=== PATIENT | male | born 1985 | race African-American/Black ===

== ENCOUNTER 2018-01-08 14:15 | Emergency (ER) | payer OTHER ==
[2018-01-08] MEDS ORDERED: Ketorolac Tromethamine 30 MG/ML VIAL ONE (14:50)
== END 2018-01-08 15:15 | disposition home or self-care (01) ==
LOC: ERS 14:15
DX: K08.89 Other specified disorders of teeth and supporting structures (principal); I10 Essential (primary) hypertension
CPT/HCPCS: 96372; J1885

== ENCOUNTER 2018-01-10 16:01 | Emergency (ER) | payer MEDICAID, OTHER ==
[2018-01-10] MEDS ORDERED: Dexamethasone 4 MG TAB ONE (16:40)
[2018-01-10] MEDS ORDERED: Bicillin LA 1.2 MILLION UNITS/2 ML SYRINGE ONE (16:40)
== END 2018-01-10 16:57 | disposition home or self-care (01) ==
LOC: ERS 16:01
DX: J02.9 Acute pharyngitis, unspecified (principal); I10 Essential (primary) hypertension
CPT/HCPCS: 87081; 87430; 99283; J0561; J8540

== ENCOUNTER 2018-01-11 12:20 | Inpatient (IN) | payer OTHER ==
[2018-01-11] MEDS ORDERED: ISOVUE-370 76%-LOCM 1 ML ONE (13:33)
[2018-01-11 13:34] LABS: Hemoglobin 13.6 g/dL (14.0-18.0); Mean Corpuscular HGB CONC 33.9 g/dL (32.0-36.0); Mean Corpuscular Hemoglobin 30.9 pg (27.0-31.0); Mean Corpuscular Volume 91.2 fL (78.0-98.0); Mean Platelet Volume 7.5 fL (7.4-10.4); Platelet Count 216 thou/uL (130-400); RBC Distribution Width 11.4 % (11.5-14.5); White Blood Cell (WBC) Count 11.9 thou/uL (4.8-10.8)
[2018-01-11] MEDS ORDERED: Dexamethasone 4 mg/ml Vial ONE (13:37)
[2018-01-11] MEDS ORDERED: Clindamycin/D5W 900 mg/50 ml Premix Bag ONE (13:37)
[2018-01-11 13:45] LABS: ALT (SGPT) 22 U/L (8-55); AST (SGOT) 16 U/L (5-34); Albumin 4.3 g/dL (3.5-5.0); Alkaline Phosphatase 65 U/L (40-150); Anion Gap 14 mmol/L (10-20); BUN (Urea Nitrogen) 13 mg/dL (8.9-20.6); Bilirubin, Total 0.6 mg/dL (0.2-1.2); Calc. Creatinine Clearance 0 mL/min (70-130); Calcium 9.7 mg/dL (7.8-10.44); Carbon Dioxide 27 mmol/L (22-29); Chloride 104 mmol/L (98-107); Estimated GFR-MDRD Greater than 90; Globulin 3.9 g/dL (2.4-3.5); Glucose 88 mg/dL (70-105); Potassium 3.5 mmol/L (3.5-5.1); Protein, Total 8.2 g/dL (6.0-8.3); Sodium 141 mmol/L (136-145)
[2018-01-11 14:02] LABS: Band 4 % (5-11); Lymphocytes 9 % (21-51); MDiff Complete? YES; Monocytes 9 % (0-10); Neutrophil 77 % (42-75); PLT Morphology Comment Appears Adequate; RBC Morphology Normal; Vacuoles SLIGHT
[2018-01-11] MEDS ORDERED: Meropenem 1 GM in Sodium Chloride 0.9% 100 ML IVPB SCH (14:15)
[2018-01-11] MEDS ORDERED: MEROPENEM 1 GM/50 ML 1 GM in Premix Bag 1 BAG IVPB SCH (14:15)
[2018-01-11] MEDS ORDERED: Ondansetron HCl/PF 4 MG/2 ML Vial IVP PRN ×3 (15:05→17:15)
[2018-01-11] MEDS ORDERED: Lidocaine 1% PF 5 ML VIAL ONE (15:11)
[2018-01-11] MEDS ORDERED: Ketorolac Tromethamine 30 MG/ML VIAL ONE (15:11)
[2018-01-11] MEDS ORDERED: Ondansetron HCl/PF 4 MG/2 ML Vial ONE (15:11)
[2018-01-11] MEDS ORDERED: Dexamethasone 20 MG/5 ML VIAL ONE (15:11)
[2018-01-11] MEDS ORDERED: Succinylcholine Chloride 20 MG/ML 10 ml SYRINGE FS ONE (15:11)
[2018-01-11] MEDS ORDERED: PROPOFOL 200 MG/20 ML VIAL ONE (15:11)
[2018-01-11] MEDS ORDERED: Sodium Chloride 0.9% 1,000 ML IV SCH (15:15)
[2018-01-11] MEDS ORDERED: Lidocaine 2% w/Epinephrine 1:200K 20 ML VIAL ONE (15:18)
[2018-01-11] MEDS ORDERED: Chlorhexidine Gluconate 15 ML UDCUP SSP ONE (15:18)
[2018-01-11] MEDS ORDERED: HYDROmorphone 0.5 MG/0.5 ML SYRINGE ONE (15:19)
[2018-01-11] MEDS ORDERED: Midazolam HCl 2 mg/2 ml Vial ONE (15:19)
[2018-01-11] MEDS ORDERED: Fentanyl 100 MCG/2 ML VIAL ONE (15:19)
[2018-01-11] MEDS ORDERED: Acetaminophen 500 MG TAB PO PRN (15:23)
--- NOTE | 2018-01-11 15:52 | CT ---
CT FACE WITH CONTRAST: INDICATIONS: Swelling. Low mandible with difficulty breathing and throat swelling. TECHNIQUE: Multiple axial tomograms obtained through the face, to the mid neck region. FINDINGS: The facial bones show no evidence of nasal or orbital abnormality. The paranasal sinuses are well ae rated with no mucosal disease. The maxilla, zygoma, and mandible appear unremarkable. The mastoid a nd petrous air cells are well aerated. The soft tissues show unremarkable parotid and submandibular glands. Nasopharynx unremarkable. Waldeyer's ring and oropharynx are unremarkable. Review of the base of the tongue reveals abnormal low attenuation involving the base of the tongue on the right, in the region of the geniohyoid musculature, just anterior to the mylohyoid. This has so mewhat of a linear appearance, measuring up to 2.2 cm in AP dimension in the axial plane x approximat greg 0.7 cm in width. There is extension, however, to the lingual side of the mandible, and there is evidence of erosion to the cortex of the mandible, involving the third molar. There is a large ronny involving this molar, and there is evidence of abnormal cystic change involving the roots. This beard ses the possibility of a periapical abscess with lingular extension into the floor of the mouth. Oth er considerations include a dilated Salineno's duct, although the dental etiology is favored. There i s no evidence of a Chi's duct stone, and the right submandibular gland does not appear inflamed. Nonspecific lymph nodes in the cervical chains bilaterally with prominent level II lymph nodes bilate rally, and there are mildly prominent level I lymph nodes, measuring up to 1 cm. IMPRESSION: Abnormal area of low attenuation in the sublingual region on the right with some surrounding enhancem ent. There is cortical erosion involving the lingual side of the mandible at this site, and there is an abnormality involving the third molar. A periapical abscess with lingular extension into the donaldo or of the mouth is suspected. Recommend either a ENT or oral surgical consultation. POS: [facility]
[2018-01-11] MEDS ORDERED: Promethazine HCl 25 MG/ML VIAL IM PRN (16:50)
[2018-01-11] MEDS ORDERED: Promethazine HCl 25 MG/ML VIAL SLOW IVP PRN (16:50)
[2018-01-11] MEDS ORDERED: HYDROmorphone 2 MG/ML VIAL SLOW IVP PRN (16:50)
[2018-01-11] MEDS: D5 0.9% NS w/ 20 mEq KCl 1,000 ML IV SCH (17:05)
[2018-01-11 17:28] VITALS: BMI 40.4
[2018-01-11] MEDS: Ibuprofen 800 MG TAB PO SCH ×2 (18:24→23:49)
--- NOTE | 2018-01-11 19:00 | HP ---
DATE OF SERVICE: 01/11/2018 CHIEF COMPLAINT: "Woke up with swelling." PRIMARY CARE PROVIDER: None. HISTORY OF PRESENT ILLNESS: Mr. Lira is a 32-year-old male, who presents to the emergency department with worsening pain and swelling in his jaw and neck. He was seen in the emergency room twice over the past few days. On the first visit he was treated with toradol, oral penicillin, peridex and ibuprofen. On the second visit yesterday he was diagnosed with acute pharyngitis, and given an injection of Bicillin and 8 mg of oral dexamethasone. He returns today with worsening both of the swelling in his jaw and neck, fevers. He reports he is unable to eat or drink fluids because of this. He denies any precipitants or relieving factors, denies any recent dental work, states the last time was when he was in residential back in 2015. In the emergency room, the patient diagnosed with Jt's angina, given meropenem 1 gram IV, clindamycin 900 mg IV, Decadron 10 mg IV and 1 liter of normal saline and OMFS called for evaluation and surgery and Hospitalist called for admission. PAST MEDICAL HISTORY: Strabismus of his right eye, history of a prior admission in 2011 for facial swelling and dental pain with a diagnosis of oral abscess. PAST SURGICAL HISTORY: He reports some type of abdominal surgery as an . SOCIAL HISTORY: He denies any tobacco, alcohol, or drugs. He lives locally with his girlfriend. He reports his surrogate decision maker is his aunt Libertad Cain. FAMILY HISTORY: Significant for mom who of cirrhosis. REVIEW OF SYSTEMS: He denies any problems with his vision, nausea, vomiting, chest pain or shortness of breath. All remaining review of systems are reviewed and negative. ALLERGIES TO MEDICATIONS: RITALIN. CURRENT MEDICATIONS: As prescribed on 01/08/2018, 1. Pen-Vee K 500 mg 4 times daily. 2. Peridex 4 times daily. 3. Ibuprofen 800 mg every 8 hours as needed. PHYSICAL EXAMINATION: VITAL SIGNS: Blood pressure 143/86, pulse 81, respirations 32, although the patient does not appear tachypneic. Temperature 99.2, saturation 94% on room air. GENERAL: Awake, alert, responsive, in no apparent distress, although he speaking with a muffled voice. HEENT: Right strabismus laterally. Pupils are equal and round. The patient is unable to open his mouth very wide. He has edema in the submandibular area on the right side with tenderness to palpation and palpable fullness. LYMPHATICS: No palpable lymphadenopathy, although unable to completely assess in the right anterior cervical area. No bilateral supraclavicular lymphadenopathy. LUNGS: Clear to auscultation bilateral. No audible wheezing, rhonchi or rales. HEART: Normal S1, S2, regular rate and rhythm, no audible murmurs. ABDOMEN: Soft. Present bowel sounds. Nontender, nondistended. EXTREMITIES: No clubbing, cyanosis, or edema. SKIN: No visible rashes. LABORATORY DATA AND IMAGIN. CBC: 11.9, 13,6, 40.1, 216. 2. Chemistry: 141, 3.5, 104, 27, 13, 0.9, 88. 3. LFTs are normal. 4. The patient had a facial bone CT and the results are not yet available. IMPRESSION: 1. Jt's angina. 2. Strabismus - asymptomatic PLAN: 1. Evaluation by OMFS with intention for the operating room for a definitive treatment and cultures. 2. I discussed with OMFS antibiotics, we will continue the clindamycin at 900 mg every 6 hours. Cultures to be obtained in the OR. 3. Manage pain and continue IV fluids for hydration. 4. Anticipated length of stay is at least 2 midnights for IV antibiotics, determination of antibiotic therapy to transition to, and any further needs. 5. DVT prophylaxis with pneumatic compression devices, anticipate patient will be ambulatory. 6. Gastrointestinal prophylaxis not indicated. 7. Code status is FULL. Surrogate decision maker is the patient's aunt. I reviewed the plan of care with the patient. No questions or further needs at end of evaluation. [facility]
[2018-01-11] MEDS: Clindamycin/D5W 900 MG in Premix Bag 1 BAG IVPB SCH (20:24)
[2018-01-11] MEDS: Chlorhexidine Gluconate 15 ML UDCUP SSP SCH (20:24)
--- NOTE | 2018-01-11 22:30 | CON ---
DATE OF CONSULTATION: 01/11/2018 REASON FOR CONSULTATION: Jaw pain and swelling. HISTORY OF PRESENT ILLNESS: This is a 32-year-old black male with approximately 2-week history of a right lower jaw pain and swelling, has been in the ER multiple times, recently on penicillin for this right lower jaw pain and swelling. For this, I was consulted. The patient does have a little bit o f difficulty swallowing and pain in his right jaw. No difficulty breathing or maintaining his airway or holding secretions. He has no numbness of his lip, chin or tongue. He does complain of pain in the right submandibular and submental region and pain from a right posterior mandibular molar. PAST MEDICAL HISTORY: The patient has a history of psychiatric disorder, unspecified. PAST SURGICAL HISTORY: Bowel resection as a child. SOCIAL HISTORY: Denies alcohol, tobacco and drugs. ALLERGIES: To RITALIN. MEDICATIONS: The patient states he takes no current home meds. PHYSICAL EXAMINATION: VITAL SIGNS: The patient's vital signs are currently stable. He is afebrile, he is satting 96% on r oom air. GENERAL: He is awake, alert, oriented x3, is in no acute distress. NECK: He does have a rather obese neck with some swelling in the right submandibular and submental a minerva as well as some swelling in the floor of the mouth on the right side. HEENT: He has a grossly decayed tooth #32, which is tender to palpation. His oral opening is good. His oropharynx is visualized. His floor of mouth is slightly elevated, but is fairly soft, nonfluct uant as well as submandibular and submental area; however, it is very tender to palpation. A CT scan of the neck with IV contrast shows a possible enhancing abscess lesion in the right subling ual area with attenuation of the right submental area as well. I cannot for certain say this the act ual fluid collection or just inflamed tissue, there is also noted a necrotic tooth #32 with a periapi myrna radiolucency with cortical perforation of that area. ASSESSMENT: This is a 32-year-old male with right submandibular, submental cellulitis, possible absc ess from necrotic tooth #32 with periapical abscess. PLAN: Will be keep the patient on IV antibiotics, clindamycin 900 mg IV q.6 hours is fine for now. The patient has also been given meropenem in the ER. We will take the patient to the OR for drainage of the above noted abscess, right submandibular and sublingual area and surgical removal and debride ment of socket #32. We will follow the patient closely.
--- NOTE | 2018-01-11 22:41 | OP ---
PREOPERATIVE DIAGNOSES: Right submandibular abscess, right sublingual abscess, necrotic tooth #32. PROCEDURE PERFORMED: Surgical removal of tooth #32, incision and drainage of right submandibular and sublingual abscess. SPECIMENS REMOVED: None. ESTIMATED BLOOD LOSS: 15-20 mL. URINE OUTPUT: Not recorded. DISPOSITION: The patient tolerated the procedure well. BRIEF PATIENT HISTORY AND PROCEDURE IN DETAIL: This is a 32-year-old male with a history of right lo wer jaw pain and tooth pain and swelling, taken to the OR, prepped and draped in the sterile fashion. A throat pack was placed, mouth irrigated with Peridex. Hockey stick incision over bone was made o missy a necrotic tooth #32. This tooth crown was fractured off and tissue was grown over the top of th e tooth. A full thickness mucoperiosteal flap to the buccal was made. A small amount of buccal oste ctomy was done with the drill followed by sectioning of the tooth with the drill, elevator removal of the tooth. I curetted the socket, normal saline irrigation of the socket. A lingual degloving full thickness mucoperiosteal flap was laid to the lingual of the mandible, into the sublingual space and down the submandibular space. Mild amount of purulent type exudate was expressed. Area was irrigat ed thoroughly. A quarter-inch Nettie drain was placed. Area left open to drain. ANESTHESIA: General endotracheal anesthesia through oral tube. The patient was extubated stable and transferred to the postop recovery unit.
[2018-01-12] MEDS: Clindamycin/D5W 900 MG in Premix Bag 1 BAG IVPB SCH ×4 (02:00→20:37)
[2018-01-12] MEDS: D5 0.9% NS w/ 20 mEq KCl 1,000 ML IV SCH ×3 (03:07→23:42)
[2018-01-12 05:28] LABS: #Lymphocytes 0.8 thou/uL (1.20-3.40); #Monocytes 0.8 thou/uL (0.11-0.59); #Neutrophils 10.8 thou/uL (1.40-6.50); %Basophils 0.3 % (0.0-1.0); %Eosinophils 0.3 % (0.0-10.0); %Lymphocytes 6.2 % (21.0-51.0); %Monocytes 6.6 % (0.0-10.0); %Neutrophils 86.6 % (42.0-75.0); Hemoglobin 12.3 g/dL (14.0-18.0); Mean Corpuscular HGB CONC 32.8 g/dL (32.0-36.0); Mean Corpuscular Hemoglobin 30.3 pg (27.0-31.0); Mean Corpuscular Volume 92.4 fL (78.0-98.0); Mean Platelet Volume 7.8 fL (7.4-10.4); Platelet Count 184 thou/uL (130-400); RBC Distribution Width 11.4 % (11.5-14.5); Red Blood Cell (RBC) Count 4.06 mill/uL (4.70-6.10); White Blood Cell (WBC) Count 12.4 thou/uL (4.8-10.8)
[2018-01-12 05:44] LABS: Anion Gap 12 mmol/L (10-20); BUN (Urea Nitrogen) 12 mg/dL (8.9-20.6); Calc. Creatinine Clearance 278 mL/min (70-130); Calcium 8.8 mg/dL (7.8-10.44); Carbon Dioxide 24 mmol/L (22-29); Chloride 106 mmol/L (98-107); Estimated GFR-MDRD Greater than 90; Glucose 137 mg/dL (70-105); Sodium 138 mmol/L (136-145)
[2018-01-12] MEDS: Ibuprofen 800 MG TAB PO SCH ×3 (06:11→18:20)
[2018-01-12] MEDS: Chlorhexidine Gluconate 15 ML UDCUP SSP SCH ×3 (08:33→20:38)
[2018-01-12] MEDS: HYDROcodone/Acetaminophen 7.5/325 mg Tablet PO PRN (13:45)
--- NOTE | 2018-01-12 22:24 | PDOC.PN ---
- Subjective Encounter Start Date: 01/12/18 Encounter Start Time: 22:10 Subjective: f/u for R sublingual abscess s/p I&D with extraction of tooth #32 -: Feels sore but overall better. Tx with IV Clindamycin currently. - Objective MAR Reviewed: Yes Vital Signs & Weight: Vital Signs (12 hours) Temp Pulse Resp BP Pulse Ox 01/12/18 19:45 98.3 F 82 16 131/81 94 L 01/12/18 15:10 97.5 F L 80 18 130/80 98 01/12/18 12:00 97.8 F 69 18 130/85 97 Weight Weight 290 lb I&O: 01/11/18 01/12/18 01/13/18 06:59 06:59 06:59 Intake Total 1840 836 Output Total 950 Balance 890 836 Result Diagrams: 01/12/18 05:08 01/12/18 05:08 Additional Labs: Microbiology 01/18/15 08:26 Throat - Pending Group A Streptococcus Screen (AMAN) - Final 01/10/18 16:33 Throat - Pending Group A Streptococcus Culture - Final 01/10/18 16:24 Tonsil - Pending Group A Streptococcus Screen (AMAN) - Final 01/11/18 13:49 Venous blood - Left Hand Blood Culture - Preliminary Specimen has been received and culture in progress. No Growth to date. 01/11/18 13:30 Venous blood - Left Arm Blood Culture - Preliminary Specimen has been received and culture in progress. No Growth to date. Laboratory Tests 01/11/18 01/12/18 13:29 05:08 WBC 11.9 H Neutrophils % 86.6 H Neutrophils % (Manual) 77 H Radiology Reviewed by me: Yes (CT neck - R sublingual abscess and periapical abscess with extension) Phys Exam - Physical Examination Constitutional: NAD Edema and TTP of R submandibular region, anterior R cervical area HEENT: PERRLA, sclera anicteric + cervical adenopathy Neck: no JVD, full ROM Respiratory: no wheezing, no rales, no rhonchi, clear to auscultation bilateral S1, S2 Cardiovascular: RRR, no significant murmur, no rub, gallop Gastrointestinal: soft, non-tender, no distention, positive bowel sounds Musculoskeletal: no edema, pulses present Neurological: non-focal, normal sensation, moves all 4 limbs Psychiatric: normal affect, A&O x 3 Skin: no rash, normal turgor, cap refill <2 seconds Dx/Plan (1) Sublingual abscess Code(s): K12.2 - CELLULITIS AND ABSCESS OF MOUTH Status: Acute Comment: s/p I&D of abscess POD #1, continue Clindamycin 900mg IV q6h, Chlorhexidine SSP, pain control prn (2) Periapical abscess Code(s): K04.7 - PERIAPICAL ABSCESS WITHOUT SINUS Status: Acute Comment: s/ p #32 extraction, see above in #1 (3) Neutrophilic leukocytosis Code(s): D72.9 - DISORDER OF WHITE BLOOD CELLS, UNSPECIFIED Status: Acute Comment: Serial CBC monitoring - Plan plan discussed w/ family, continue antibiotics, out of bed/ambulate, DVT proph w /SCDs Stable overall -: Continue Clindamycin 900mg IV q6h -: Continue Morphine Sulfate 2mg-4mg IV q4h prn pain -: Chlorhexidine SSP -: AM lab: BMP, CBC * .
[2018-01-13] MEDS: HYDROcodone/Acetaminophen 7.5/325 mg Tablet PO PRN ×2 (01:39→12:17)
[2018-01-13] MEDS: Clindamycin/D5W 900 MG in Premix Bag 1 BAG IVPB SCH ×2 (01:39→08:22)
[2018-01-13 06:14] LABS: Band 6 % (5-11); Hemoglobin 12.4 g/dL (14.0-18.0); Lymphocytes 23 % (21-51); MDiff Complete? YES; Mean Corpuscular Hemoglobin 30.5 pg (27.0-31.0); Mean Corpuscular Volume 92.3 fL (78.0-98.0); Mean Platelet Volume 7.6 fL (7.4-10.4); Monocytes 9 % (0-10); Neutrophil 62 % (42-75); PLT Morphology Comment Appears Adequate; Platelet Count 195 thou/uL (130-400); RBC Distribution Width 11.2 % (11.5-14.5); Red Blood Cell (RBC) Count 4.05 mill/uL (4.70-6.10); White Blood Cell (WBC) Count 8.2 thou/uL (4.8-10.8)
[2018-01-13 06:17] LABS: Anion Gap 13 mmol/L (10-20); BUN (Urea Nitrogen) 12 mg/dL (8.9-20.6); Calc. Creatinine Clearance 260 mL/min (70-130); Calcium 8.4 mg/dL (7.8-10.44); Carbon Dioxide 26 mmol/L (22-29); Chloride 103 mmol/L (98-107); Estimated GFR-MDRD Greater than 90; Glucose 89 mg/dL (70-105); Potassium 3.7 mmol/L (3.5-5.1); Sodium 138 mmol/L (136-145)
[2018-01-13] MEDS: Chlorhexidine Gluconate 15 ML UDCUP SSP SCH (08:22)
--- NOTE | 2018-01-13 10:01 | PRG ---
DATE OF SERVICE: 01/12/2018 TIME: 06:30 p.m. SUBJECTIVE: No acute 24-hour events. The patient is voiding, ambulating, and tolerating p.o. His p ain is controlled. No dysphagia. No difficulty breathing. OBJECTIVE: VITAL SIGNS: Stable. He is afebrile, T-max is 98.7. GENERAL: He is awake, alert, oriented x3. He is in no acute distress. HEENT: His oral opening is good. His oropharynx is clear. There is no uvular deviation. The floor of mouth is soft. NECK: Soft. There is decreased swelling of the right submandibular and submental areas. The drain [place] 1/2 inch was removed from the lingual of the mandible today. LABORATORY DATA: White blood cell count today is 12.4. This is being dictated on 01/13/2018 where t he white count is 8.2. ASSESSMENT: The patient is doing well, status post I and D of a dental abscess. PLAN: Discharge the patient home on p.o. clindamycin 300 mg p.o. q.6 hours x5 days, Peridex 15 mL sw griselda and spit t.i.d., and Tylenol #3 for pain.
[2018-01-13 14:52] VITALS: BP 128/86; TEMP 98.8
--- NOTE | 2018-01-14 01:45 | DIS ---
DATE OF ADMISSION: 01/11/2018 DATE OF DISCHARGE: 01/13/2018 DISCHARGE DIAGNOSES: 1. Sublingual abscess status post incision and drainage on 01/11/2018. 2. Periapical abscess of tooth #32, status post extraction. 3. Neutrophilic leukocytosis improved. CONSULTATIONS: Dr. Edward with Oral Maxillofacial Surgery Service. PERTINENT LABORATORY AND X-RAY FINDINGS: Complete metabolic profile within normal limits. CBC showe d a white blood cell count ranged between 8.2 to 12.4, hemoglobin ranged between 12.3 to 13.6. Blood cultures x2 from 01/11/2018 showed no growth at [address] of the facial bone dated 01/11/2018 sh owed cortical erosion of the lingual side of the mandible the sublingual region on the right. Abnorm ality involving the third molar noted with concern for periapical abscess. HOSPITAL COURSE: The patient was initially admitted after presenting with jaw and neck pain in the c ontext of abscess in the sublingual region noted on CT imaging of the face and neck. The patient was initially treated with IV meropenem, clindamycin, and Decadron and 1 liter of normal saline. The kory haji underwent evaluation by the Oral Maxillofacial Surgery Service and taken for incision and drain age of the right submandibular and sublingual abscess as well as extraction of tooth #32. The patien t continued on IV clindamycin throughout the hospital course; however, postoperatively remained clini janina stable. The patient received Peridex swish and spit as well as ibuprofen and morphine sulfate for pain control. The patient overall remained clinically stable throughout the hospital course and I have discussed followup instructions with the patient who verbalized understanding and agreement. The patient overall clinically stable and ready for discharge on 01/13/2018. DISCHARGE MEDICATIONS: 1. Clindamycin 300 mg 1 tab p.o. q.6 hours x5 days. 2. Peridex 15 mL swish and spit t.i.d. 3. Tylenol No. 3 one to two tabs p.o. q.4-6 hours p.r.n. FOLLOWUP: The patient will follow up with Dr. Julian Edward with [facility]. CONDITION ON DISCHARGE: Stable. ACTIVITY: Ad mehnaz. DIET: Regular. CODE STATUS: FULL. DISPOSITION: Home on 01/13/2018.
== END 2018-01-13 15:02 | disposition home or self-care (01) | DRG 138 ==
LOC: ERS 12:20 → SURG B 17:24
PROVIDERS: ADMIT Family Medicine; ATTEND Family Medicine
PROC: 0W950ZZ Drainage of Lower Jaw, Open Approach (ICD-10-PCS; principal; 2018-01-11)
PROC: 0CTX0Z0 Resection of Lower Tooth, Single, Open Approach (ICD-10-PCS; 2018-01-11)
DX: K12.2 Cellulitis and abscess of mouth (principal); K04.7 Periapical abscess without sinus; D72.9 Disorder of white blood cells, unspecified; H50.89 Other specified strabismus
CPT/HCPCS: 36415; 70487; 80048; 80053; 85007; 85025; 85027; 87040; 87081; 87430; 96361; 96365; 96367; 96375; 99283; J0561; J1100; J1170; J1885; J2001; J2185; J2250; J2270; J2405; J2704; J3010; J3490; J7050; J8540

== ENCOUNTER 2018-06-19 18:10 | Emergency (ER) | payer OTHER | END 2018-06-19 18:23 | disposition home or self-care (01) | LOC: ERS 18:10 | DX: K03.81 Cracked tooth (principal); K04.7 Periapical abscess without sinus; I10 Essential (primary) hypertension | CPT/HCPCS: 99282 ==

== ENCOUNTER 2018-07-15 21:28 | Emergency (ER) | payer OTHER | END 2018-07-15 22:09 | disposition home or self-care (01) | LOC: ERS 21:28 | DX: K02.9 Dental caries, unspecified (principal); I10 Essential (primary) hypertension | CPT/HCPCS: 99282 ==

== ENCOUNTER 2019-06-08 19:52 | Emergency (ER) | payer OTHER ==
[2019-06-08] MEDS ORDERED: Ketorolac Tromethamine 30 MG/ML VIAL ONE (20:41)
== END 2019-06-08 20:55 | disposition home or self-care (01) ==
LOC: ERS 19:52
DX: K02.9 Dental caries, unspecified (principal); I10 Essential (primary) hypertension
CPT/HCPCS: 96372; 99283; J1885

== ENCOUNTER 2019-09-14 15:39 | Emergency (ER) | payer OTHER ==
[2019-09-14] MEDS ORDERED: Ketorolac Tromethamine 30 MG/ML VIAL ONE (16:18)
--- NOTE | 2019-09-14 16:53 | RAD ---
THREE VIEWS OF THE LEFT SHOULDER: 09/14/19 COMPARISON: None. HISTORY: Injury, trauma, pain. FINDINGS: There is no widening of the acromioclavicular or the coracoclavicular interspace. No displaced fractu re or evidence of dislocation is appreciate. There is a focal area of linear calcification adjacent to the greater tuberosity on image 1 of 3 russ uring 7 mm, which may be on the basis of calcific tendinosis. IMPRESSION: No displaced fracture or evidence of dislocation. Question calcific tendinosis. POS: [facility]
== END 2019-09-14 17:02 | disposition home or self-care (01) ==
LOC: ERS 15:39
DX: M25.512 Pain in left shoulder (principal); I10 Essential (primary) hypertension; M54.2 Cervicalgia; R10.814 Left lower quadrant abdominal tenderness; R10.812 Left upper quadrant abdominal tenderness; V89.2XXA Person injured in unspecified motor-vehicle accident, traffic, initial encounter
CPT/HCPCS: 96372; J1885

== ENCOUNTER 2019-10-22 20:41 | Emergency (ER) | payer OTHER ==
[2019-10-22] MEDS ORDERED: Ketorolac Tromethamine 30 MG/ML VIAL ONE (21:44)
== END 2019-10-22 22:08 | disposition home or self-care (01) ==
LOC: ERS 20:41
DX: K08.89 Other specified disorders of teeth and supporting structures (principal); I10 Essential (primary) hypertension
CPT/HCPCS: 96372; 99282; J1885

== ENCOUNTER 2020-05-19 16:11 | Emergency (ER) | payer OTHER | END 2020-05-19 16:55 | disposition home or self-care (01) | LOC: ERS 16:11 | DX: S02.2XXA Fracture of nasal bones, initial encounter for closed fracture (principal); S40.022A Contusion of left upper arm, initial encounter; I10 Essential (primary) hypertension; Y04.8XXA Assault by other bodily force, initial encounter | CPT/HCPCS: 99284 ==

== ENCOUNTER 2020-09-03 14:03 | Emergency (ER) | payer OTHER ==
[2020-09-03] MEDS ORDERED: Ketorolac Tromethamine 30 MG/ML VIAL ONE ×2 (16:43→16:45)
[2020-09-03] MEDS ORDERED: Acetaminophen 500 MG TAB ONE (16:45)
--- NOTE | 2020-09-03 16:49 | RAD ---
Portable frontal chest radiograph: 09/03/2020 COMPARISON: 12/24/2014 HISTORY: Fever and chills, cough FINDINGS: There are patchy areas of interstitial and groundglass opacity noted in the left perihilar region and left suprahilar region as well as within the medial right lung base. There is no pneumothorax or pleural fluid and no focal consolidation or alveolar edema. IMPRESSION: Patchy areas of linear interstitial density and groundglass opacity. Findings may signify Covid pneumonia in the proper clinical setting.
[2020-09-03 16:52] LABS: #Monocytes 0.3 thou/uL (0.11-0.59); #Neutrophils 3.5 thou/uL (1.40-6.50); %Basophils 0.4 % (0.0-1.0); %Eosinophils 0.1 % (0.0-10.0); %Lymphocytes 20.5 % (21.0-51.0); %Monocytes 6.9 % (0.0-10.0); %Neutrophils 72.1 % (42.0-75.0); Hemoglobin 13.8 g/dL (14.0-18.0); Mean Corpuscular HGB CONC 33.7 g/dL (32.0-36.0); Mean Corpuscular Hemoglobin 29.8 pg (27.0-31.0); Mean Corpuscular Volume 88.4 fL (78.0-98.0); Mean Platelet Volume 7.6 fL (7.4-10.4); Platelet Count 200 thou/uL (130-400); RBC Distribution Width 11.3 % (11.5-14.5); Red Blood Cell (RBC) Count 4.62 mill/uL (4.70-6.10); White Blood Cell (WBC) Count 4.9 thou/uL (4.8-10.8)
[2020-09-03 17:12] LABS: ALT (SGPT) 22 U/L (8-55); AST (SGOT) 21 U/L (5-34); Albumin 4.3 g/dL (3.5-5.0); Alkaline Phosphatase 62 U/L (40-110); Anion Gap 16 mmol/L (10-20); BUN (Urea Nitrogen) 10 mg/dL (8.9-20.6); Bilirubin, Total 0.5 mg/dL (0.2-1.2); Calc. Creatinine Clearance 0 mL/min (70-130); Calcium 8.9 mg/dL (7.8-10.44); Carbon Dioxide 25 mmol/L (22-29); Chloride 103 mmol/L (98-107); Globulin 3.7 g/dL (2.4-3.5); Glucose 88 mg/dL (70-105); Potassium 4.1 mmol/L (3.5-5.1); Sodium 140 mmol/L (136-145)
[2020-09-03 17:24] LABS: Bilirubin Negative (Negative); Blood, Urine Negative (Negative); Clarity Clear (Clear); Glucose, Urine (Dipstick) Normal (Negative); Ketone, Urine Negative (Negative); Leukocyte Negative Leu/uL (Negative); Nitrite Negative (Negative); Protein, Urine (Dipstick) 10 mg/dL (Neg-Trace); Specific Gravity, Urine 1.029 (1.002-1.036); Urobilinogen Normal mg/dL (Less than 2)
[2020-09-03 19:19] LABS: SARS-CoV-2 NAA Rapid Test DETECTED (NotDetected)
== END 2020-09-03 19:02 | disposition home or self-care (01) ==
LOC: ERS 14:03
DX: U07.1 COVID-19 (principal); E78.5 Hyperlipidemia, unspecified; I10 Essential (primary) hypertension
CPT/HCPCS: 0240U; 71045; 80053; 81003; 85025; 87086; 96374; J1885

== ENCOUNTER 2020-12-09 21:57 | Emergency (ER) | payer OTHER ==
[2020-12-09] MEDS ORDERED: Ibuprofen 200 MG TAB ONE (23:44)
[2020-12-09] MEDS ORDERED: Acetaminophen 500 MG TAB ONE (23:44)
== END 2020-12-09 23:40 | disposition home or self-care (01) ==
LOC: ERS 21:57
DX: K62.89 Other specified diseases of anus and rectum (principal); E78.5 Hyperlipidemia, unspecified; I10 Essential (primary) hypertension
CPT/HCPCS: 99283

== ENCOUNTER 2021-02-10 01:53 | Emergency (ER) | payer OTHER | END 2021-02-10 03:15 | disposition home or self-care (01) | LOC: ERS 01:53 | DX: K62.89 Other specified diseases of anus and rectum (principal); K64.9 Unspecified hemorrhoids; E78.5 Hyperlipidemia, unspecified; I10 Essential (primary) hypertension | CPT/HCPCS: 99281 ==

== ENCOUNTER 2021-02-14 14:54 | Emergency (ER) | payer OTHER ==
[2021-02-14 18:11] LABS: #Lymphocytes 1.6 thou/uL (1.20-3.40); #Monocytes 0.6 thou/uL (0.11-0.59); #Neutrophils 6.3 thou/uL (1.40-6.50); %Basophils 0.3 % (0.0-1.0); %Eosinophils 0.5 % (0.0-10.0); %Lymphocytes 19.1 % (21.0-51.0); %Monocytes 6.8 % (0.0-10.0); %Neutrophils 73.4 % (42.0-75.0); Hemoglobin 13.6 g/dL (14.0-18.0); Mean Corpuscular HGB CONC 33.5 g/dL (32.0-36.0); Mean Corpuscular Hemoglobin 30.4 pg (27.0-31.0); Mean Corpuscular Volume 90.8 fL (78.0-98.0); Mean Platelet Volume 7.5 fL (7.4-10.4); Platelet Count 268 thou/uL (130-400); RBC Distribution Width 11.6 % (11.5-14.5); Red Blood Cell (RBC) Count 4.46 mill/uL (4.70-6.10); White Blood Cell (WBC) Count 8.5 thou/uL (4.8-10.8)
[2021-02-14 18:34] LABS: ALT (SGPT) 27 U/L (8-55); AST (SGOT) 18 U/L (5-34); Albumin 4.3 g/dL (3.5-5.0); Alkaline Phosphatase 73 U/L (40-110); Anion Gap 13 mmol/L (10-20); BUN (Urea Nitrogen) 8 mg/dL (8.9-20.6); Bilirubin, Total 0.5 mg/dL (0.2-1.2); Calc. Creatinine Clearance 0 mL/min (70-130); Calcium 9.5 mg/dL (7.8-10.44); Carbon Dioxide 26 mmol/L (22-29); Chloride 102 mmol/L (98-107); Globulin 3.7 g/dL (2.4-3.5); Glucose 83 mg/dL (70-105); Lipase 12 U/L (8-78); Potassium 4.2 mmol/L (3.5-5.1); Sodium 137 mmol/L (136-145)
[2021-02-14 19:03] LABS: Bilirubin Negative (Negative); Blood, Urine Negative (Negative); Clarity Clear (Clear); Glucose, Urine (Dipstick) Normal (Negative); Ketone, Urine Negative (Negative); Leukocyte Negative Leu/uL (Negative); Nitrite Negative (Negative); Protein, Urine (Dipstick) Negative (Neg-Trace); Urobilinogen Normal mg/dL (Less than 2)
[2021-02-14] MEDS ORDERED: Magnesium Citrate 300 ML BOT ONE (19:11)
[2021-02-14] MEDS ORDERED: Fleet Enema 133 ML BOT FS SCH (19:30)
== END 2021-02-14 22:49 | disposition home or self-care (01) ==
LOC: ERS 14:54
DX: K59.00 Constipation, unspecified (principal); I10 Essential (primary) hypertension; E78.5 Hyperlipidemia, unspecified
CPT/HCPCS: 36415; 74019; 80053; 81003; 83690; 85025

== ENCOUNTER 2021-04-12 13:54 | Emergency (ER) | payer OTHER ==
[2021-04-12 15:01] LABS: #Eosinphils 0.1 thou/uL (0.0-0.7); #Lymphocytes 1.2 thou/uL (1.20-3.40); #Monocytes 0.4 thou/uL (0.11-0.59); #Neutrophils 3.1 thou/uL (1.40-6.50); %Eosinophils 1.1 % (0.0-10.0); %Lymphocytes 24.2 % (21.0-51.0); %Monocytes 7.8 % (0.0-10.0); Hemoglobin 12.8 g/dL (14.0-18.0); Mean Corpuscular HGB CONC 32.8 g/dL (32.0-36.0); Mean Corpuscular Hemoglobin 29.9 pg (27.0-31.0); Mean Corpuscular Volume 91.1 fL (78.0-98.0); Mean Platelet Volume 7.3 fL (7.4-10.4); Platelet Count 244 thou/uL (130-400); RBC Distribution Width 11.9 % (11.5-14.5); Red Blood Cell (RBC) Count 4.28 mill/uL (4.70-6.10); White Blood Cell (WBC) Count 4.8 thou/uL (4.8-10.8)
[2021-04-12 15:22] LABS: ALT (SGPT) 21 U/L (8-55); AST (SGOT) 15 U/L (5-34); Albumin 4.1 g/dL (3.5-5.0); Alkaline Phosphatase 66 U/L (40-110); Anion Gap 13 mmol/L (10-20); BUN (Urea Nitrogen) 9 mg/dL (8.9-20.6); Bilirubin, Total 0.5 mg/dL (0.2-1.2); Calc. Creatinine Clearance 0 mL/min (70-130); Calcium 9.4 mg/dL (7.8-10.44); Carbon Dioxide 25 mmol/L (22-29); Chloride 108 mmol/L (98-107); Globulin 3.2 g/dL (2.4-3.5); Glucose 103 mg/dL (70-105); Potassium 4.2 mmol/L (3.5-5.1); Protein, Total 7.3 g/dL (6.0-8.3); Sodium 142 mmol/L (136-145)
== END 2021-04-12 16:48 | disposition home or self-care (01) ==
LOC: ERS 13:54
DX: K52.9 Noninfective gastroenteritis and colitis, unspecified (principal)
CPT/HCPCS: 36415; 80053; 85025; 94760

== ENCOUNTER 2021-05-05 21:20 | Emergency (ER) | payer OTHER ==
[2021-05-05] MEDS ORDERED: Ketorolac Tromethamine 30 MG/ML VIAL ONE (21:39)
== END 2021-05-05 22:50 | disposition home or self-care (01) ==
LOC: ERS 21:20
DX: M25.561 Pain in right knee (principal); E78.5 Hyperlipidemia, unspecified; I10 Essential (primary) hypertension
CPT/HCPCS: 96372; J1885

== ENCOUNTER 2021-08-25 12:33 | Emergency (ER) | payer OTHER ==
[~2021-08-25 12:33] MED LIST: Iopamidol-370 76% 500 ML 1 ML ONE
== END 2021-08-25 15:17 | disposition home or self-care (01) ==
LOC: ERS 12:33
DX: S30.1XXA Contusion of abdominal wall, initial encounter (principal); M62.838 Other muscle spasm; M54.2 Cervicalgia; M54.50 Low back pain, unspecified; I10 Essential (primary) hypertension; E78.5 Hyperlipidemia, unspecified; V89.2XXA Person injured in unspecified motor-vehicle accident, traffic, initial encounter
CPT/HCPCS: 71045; 72125; 74177; Q9967

== ENCOUNTER 2022-06-16 20:13 | Emergency (ER) | payer OTHER ==
[2022-06-16] MEDS ORDERED: Ibuprofen 200 MG TAB ONE (20:41)
[2022-06-16] MEDS ORDERED: diphenhydrAMINE 25 MG CAP ONE (20:55)
[2022-06-16 21:40] LABS: SARS-CoV-2 NAA Rapid Test Not Detected (NotDetected)
== END 2022-06-16 21:03 | disposition home or self-care (01) ==
LOC: ERS 20:13
DX: H60.92 Unspecified otitis externa, left ear (principal); B34.9 Viral infection, unspecified; Z20.822 Contact with and (suspected) exposure to COVID-19; E78.5 Hyperlipidemia, unspecified; I10 Essential (primary) hypertension
CPT/HCPCS: 99283

== ENCOUNTER 2022-08-04 20:59 | Emergency (ER) | payer OTHER ==
[2022-08-04 21:31] LABS: #Basophils 0.1 thou/uL (0.0-0.2); #Lymphocytes 1.7 thou/uL (1.20-3.40); #Monocytes 0.5 thou/uL (0.11-0.59); #Neutrophils 3.1 thou/uL (1.40-6.50); %Eosinophils 0.8 % (0.0-10.0); %Lymphocytes 31.4 % (21.0-51.0); %Monocytes 8.9 % (0.0-10.0); %Neutrophils 57.9 % (42.0-75.0); Hemoglobin 14.3 g/dL (14.0-18.0); Mean Corpuscular HGB CONC 34.2 g/dL (32.0-36.0); Mean Corpuscular Hemoglobin 30.9 pg (27.0-31.0); Mean Corpuscular Volume 90.2 fl (78.0-98.0); Mean Platelet Volume 7.7 fL (7.4-10.4); Platelet Count 256 10x3/uL (130-400); RBC Distribution Width 11.8 % (11.5-14.5); Red Blood Cell (RBC) Count 4.64 mill/uL (4.70-6.10); White Blood Cell (WBC) Count 5.4 10x3/uL (4.8-10.8)
[2022-08-04 21:51] LABS: ALT (SGPT) 26 U/L (8-55); AST (SGOT) 17 U/L (5-34); Albumin 4.4 g/dL (3.5-5.0); Alkaline Phosphatase 62 U/L (40-110); Anion Gap 15 mmol/L (10-20); BUN (Urea Nitrogen) 10 mg/dL (8.9-20.6); Bilirubin, Total 0.3 mg/dL (0.2-1.2); Calc. Creatinine Clearance 0 mL/min (70-130); Calcium 9.4 mg/dL (7.8-10.44); Carbon Dioxide 23 mmol/L (22-29); Chloride 108 mmol/L (98-107); Estimated GFR 120; Globulin 3.6 g/dL (2.4-3.5); Glucose 79 mg/dL (70-105); Potassium 4.1 mmol/L (3.5-5.1); Sodium 142 mmol/L (136-145)
[2022-08-04] MEDS ORDERED: Acetaminophen 500 MG TAB ONE (22:29)
[2022-08-04] MEDS ORDERED: Ketorolac Tromethamine 30 MG/ML VIAL ONE (22:29)
== END 2022-08-04 23:00 | disposition home or self-care (01) ==
LOC: ERS 20:59
DX: M79.602 Pain in left arm (principal); E78.5 Hyperlipidemia, unspecified; I10 Essential (primary) hypertension
CPT/HCPCS: 36415; 70450; 71045; 80053; 84484; 85025; 93005; 96372; J1885

== ENCOUNTER 2024-05-10 22:48 | Emergency (ER) | payer SELFPAY ==
[2024-05-10 23:36] LABS: #Basophils 0.03 10x3/uL (0.0-0.2); %Basophils 0.8 % (0.0-1.0); %Eosinophils 2.3 % (0.0-10.0); %Lymphocytes 34.4 % (21.0-51.0); %Monocytes 7.6 % (0.0-10.0); %Neutrophils 54.6 % (42.0-75.0); Hematocrit 42.1 % (42.0-52.0); Hemoglobin 13.9 g/dL (14.0-18.0); Mean Corpuscular Hemoglobin 29.6 pg (27.0-31.0); Mean Corpuscular Volume 89.8 fL (78.0-98.0); Mean Platelet Volume 10.1 fL (7.4-10.4); Platelet Count 247 10x3/uL (130-400); RBC Distribution Width 12.4 % (11.5-14.5); Red Blood Cell (RBC) Count 4.69 mill/uL (4.70-6.10)
[2024-05-10 23:48] LABS: ALT (SGPT) 34 U/L (8-55); AST (SGOT) 23 U/L (5-34); Albumin 3.8 g/dL (3.5-5.0); Alkaline Phosphatase 66 U/L (40-110); Anion Gap 13 mmol/L (10-20); BUN (Urea Nitrogen) 9 mg/dL (8.9-20.6); Bilirubin, Total 0.4 mg/dL (0.2-1.2); Calc. Creatinine Clearance 0 mL/min (70-130); Calcium 9.3 mg/dL (7.8-10.44); Carbon Dioxide 25 mmol/L (22-29); Chloride 103 mmol/L (98-107); Estimated GFR 116; Globulin 3.6 g/dL (2.4-3.5); Glucose 98 mg/dL (70-105); Protein, Total 7.4 g/dL (6.0-8.3); Sodium 137 mmol/L (136-145)
[2024-05-10 23:49] LABS: Acetaminophen Less than 10 mcg/mL (Less than 10); Alcohol Less than 10.0 mg/dL (Less than 10); Salicylate Less than 8.0 mg/dL (Less than 8.0)
[2024-05-10 23:52] LABS: Troponin I Less than 0.010 ng/mL (< 0.028)
[2024-05-11 00:15] LABS: Amphetamine Not Detected (NotDetected); Barbiturates Screen Not Detected (NotDetected); Benzodiazepine Screen Not Detected (NotDetected); Cocaine Metabolite Screen Not Detected (NotDetected); Methadone Not Detected (NotDetected); Methamphetamine Not Detected (NotDetected); Opiate Screen Not Detected (NotDetected); Oxycodone Screen Not Detected (NotDetected); Phencyclidine (PCP) Not Detected (NotDetected); THC/Cannabinoid Screen Not Detected (NotDetected); Tricyclic Screen Not Detected (NotDetected)
== END 2024-05-11 02:34 | disposition home or self-care (01) ==
LOC: ERS 22:48
DX: G62.9 Polyneuropathy, unspecified (principal); I10 Essential (primary) hypertension
CPT/HCPCS: 36415; 36416; 70450; 71045; 80053; 80306; 80307; 83605; 83880; 84484; 85025; 87428; 93005; 94760

== ENCOUNTER 2025-02-27 13:23 | Emergency (ER) | payer OTHER ==
[2025-02-27] MEDS ORDERED: Ketorolac Tromethamine 30 MG (1 mL) VIAL ONE (16:18)
[2025-02-27] MEDS ORDERED: Metoclopramide HCl 10 MG (2 mL) VIAL ONE (16:19)
[2025-02-27] MEDS ORDERED: Dexamethasone 10 MG/ML VIAL ONE (16:19)
== END 2025-02-27 17:20 | disposition home or self-care (01) ==
LOC: ERS 13:23
DX: G43.909 Migraine, unspecified, not intractable, without status migrainosus (principal); I10 Essential (primary) hypertension
CPT/HCPCS: 96374; 96375; J1100; J1885; J2765

== ENCOUNTER 2025-07-08 15:31 | Emergency (ER) | payer OTHER ==
[2025-07-08 16:32] LABS: #Basophils 0.05 10x3/uL (0.0-0.2); #Eosinophils Less than 0.03 10x3/uL (0.0-0.7); #Monocytes 0.33 10x3/uL (0.11-0.59); #Neutrophils 3.71 10x3/uL (1.40-6.50); %Basophils 1.2 % (0.0-1.0); %Eosinophils 0.2 % (0.0-10.0); %Lymphocytes 5.1 % (21.0-51.0); %Monocytes 7.6 % (0.0-10.0); %Neutrophils 85.9 % (42.0-75.0); Hematocrit 43.1 % (42.0-52.0); Hemoglobin 14.2 g/dL (14.0-18.0); Mean Corpuscular Hemoglobin 28.0 pg (27.0-31.0); Mean Corpuscular Volume 84.8 fL (78.0-98.0); Platelet Count 277 10x3/uL (130-400); Red Blood Cell (RBC) Count 5.08 mill/uL (4.70-6.10); White Blood Cell (WBC) Count 4.32 10x3/uL (4.8-10.8)
[2025-07-08 16:47] LABS: ALT (SGPT) 38 U/L (Less than 45); AST (SGOT) 31 U/L (11-34); Albumin 4.2 g/dL (3.1-4.5); Alkaline Phosphatase 200 U/L (40-110); Anion Gap 14 mmol/L (10-20); BUN (Urea Nitrogen) 15 mg/dL (8.9-20.6); Bilirubin, Total 0.6 mg/dL (0.3-1.2); Calc. Creatinine Clearance 0 mL/min (70-130); Calcium 9.7 mg/dL (7.8-10.44); Carbon Dioxide 25 mmol/L (22-29); Chloride 106 mmol/L (98-107); Globulin 4.0 g/dL (2.4-3.5); Glucose 110 mg/dL (70-105); Potassium 3.8 mmol/L (3.5-5.1); Sodium 141 mmol/L (136-145)
[2025-07-08 16:56] LABS: Cocaine Metabolite Screen Negative (Negative); THC/Cannabinoid Screen Negative (Negative); Tricyclic Screen Negative (Negative)
[2025-07-08 16:58] LABS: Acetaminophen Less than 10 mcg/mL (Less than 10); Salicylate Less than 8.0 mg/dL (Less than 8.0)
== END 2025-07-08 17:30 | disposition home or self-care (01) ==
LOC: ERS 15:31
DX: R55 Syncope and collapse (principal); I10 Essential (primary) hypertension
CPT/HCPCS: 71045; 80053; 80306; 80307; 84484; 85025; 87428; 93005